=== PATIENT | female | born 1990 | race Caucasian/White ===

== ENCOUNTER 2023-09-14 14:47 | Outpatient (CLI) | payer OTHER, SELFPAY ==
[2023-09-14 22:01] LABS: Strep A DNA Probe* NOT DETECTED (Not Detectd)
== END 2023-09-14 14:48 | disposition home or self-care (01) ==
LOC: KYNREF 14:47
PROVIDERS: PCP Family Medicine; Visit Provider Nurse Practitioner Family
DX: J02.9 Acute pharyngitis, unspecified (principal)
CPT/HCPCS: 87651